=== PATIENT | female | born 1990 | race Caucasian/White ===

== ENCOUNTER 2017-04-17 18:03 | Emergency (ER) | payer OTHER ==
[~2017-04-17] VITALS: Ht 160 cm; Wt 56.7 kg
== END 2017-04-17 22:52 | disposition home or self-care (01) ==
LOC: ER 18:03
DX: O26.891 Other specified pregnancy related conditions, first trimester (principal); R10.2 Pelvic and perineal pain; R50.9 Fever, unspecified; Z3A.12 12 weeks gestation of pregnancy

== ENCOUNTER 2017-10-07 15:29 | Inpatient (IN) | payer OTHER ==
[~2017-10-07] VITALS: Ht 157.5 cm; Wt 66.2 kg
[2017-10-23] MEDS ORDERED: PRENATAL 19 TA1 EAC1 PO (15:49)
== END 2017-10-23 18:28 | disposition home or self-care (01) | DRG 775 ==
LOC: OB/GYN 10-21 06:12 → LDR 10-21 06:12 → OB/GYN 10-21 10:25 → LDR 10-28 15:28
PROC: 10E0XZZ Delivery of Products of Conception, External Approach (ICD-10-PCS; principal; 2017-10-21)
PROC: 0KQM0ZZ Repair Perineum Muscle, Open Approach (ICD-10-PCS; 2017-10-21)
PROC: 4A033R1 Measurement of Arterial Saturation, Peripheral, Percutaneous Approach (ICD-10-PCS; 2017-10-21)
PROC: 4A1HXCZ Monitoring of Products of Conception, Cardiac Rate, External Approach (ICD-10-PCS; 2017-10-21)
DX: O70.1 Second degree perineal laceration during delivery (principal); Z37.0 Single live birth; Z3A.39 39 weeks gestation of pregnancy